=== PATIENT | male | born 1975 | race Caucasian/White ===

== ENCOUNTER 2016-11-22 10:49 | Emergency (ER) | payer OTHER ==
[~2016-11-22] VITALS: Ht 175.3 cm; Wt 81.6 kg
--- NOTE | 2016-11-22 11:48 | RADIOLOGY REPORT ---
EXAMINATION: XR HAND, LEFT CLINICAL INFORMATION: Pain and swelling status post trauma. COMPARISON: None TECHNIQUE: AP, lateral, and oblique views of the left hand. FINDINGS: Bandage material is identified laterally. Bone mineral density is maintained without evidence of fracture or dislocation. No focal osseous lesions are seen. Joint space is maintained without productive or erosive changes. No radiopaque foreign bodies are seen. IMPRESSION: No fracture or foreign body is identified.
[2016-11-22] MEDS ORDERED: METOPROLOL TART25 M1 PO (12:01)
[2016-11-22] MEDS ORDERED: SERTRALINE HCL50 MG PO (12:01)
[2016-11-22] MEDS ORDERED: ASPIRIN EC81 M1 PO (12:02)
--- NOTE | 2016-11-22 12:59 | ED UPPER/LOWER EXTREMITY COMPL ---
History of Present Illness General Chief Complaint: Laceration Procedure Stated Complaint: L HAND/STOMACH LAC Source: patient Exam Limitations: no limitations Vital Signs & Intake/Output Vital Signs & Intake/Output Vital Signs Date Time Temp Pulse Resp B/P Pulse O2 O2 Flow FiO2 Ox Delivery Rate 11/22 1350 76 16 118/70 99 Room Air 11/22 1058 97.1 80 18 124/86 98 Room Air Allergies Coded Allergies: No Known Allergies (11/22/16) Reconcile Medications Aspirin (Ecotrin*) 81 MG TABLET.DR 1 TAB PO DAILY HEART HEALTH (Reported) Metoprolol Tartrate 25 MG TABLET 1 TAB PO TID HEART RATE (Reported) Oxycodone HCl/Acetaminophen (Percocet 5-325 MG Tablet) 5 MG-325 MG TABLET 1 TAB PO TID PRN PAIN Sertraline HCl 50 MG TABLET 1.5 TAB PO DAILY MENTAL HEALTH (Reported) Triage Note: PT STATES THAT WHILE AT WORK HE WAS FEEDING A METAL BAR INTO A MACHINE AND FEED TUBE CAME BACK AND HIT TOP OF HIS L HAND, LAC NOTED AND BLEEDING UNDER CONTROL, ALSO BAR HIT HIM L SIDE ABD , NOTED WITH ABRASION AND SWELLING. PT CONCERNED DUE TO HE HAD MITRAL VALVE REPLACEMENT 6 MONTHS AGO Triage Nurses Notes Reviewed? yes Onset: Abrupt Duration: constant Timing: single episode today Severity: severe Method of Injury: direct blow No Modifying Factors: none HPI: Patient is a 40-year-old male who presents emergency and that while at work today he was near a metal circulating machine in which it subsequently struck patient to the left dorsal aspect of his hand resulting in a laceration and immediate onset of 10 out of 10 pain localized to left hand and left abdomen region resulting in skin abrasions and ecchymosis and tenderness. Denies any nausea vomiting. Tetanus is unknown. No medications given prior to arrival. Patient is right arm dominant. (KELVIN GUERRERO) Past History Travel History Traveled to [place] past 21 day No Medical History Any Pertinent Medical History? 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 No (KELVIN GUERRERO) Review of Systems Review of Systems Constitutional: Reports: no symptoms. EENTM: Reports: no symptoms. Respiratory: Reports: no symptoms. Cardiovascular: Reports: no symptoms. Gastrointestinal/Abdominal: Reports: no symptoms. Genitourinary: Reports: no symptoms. Musculoskeletal: Reports: see HPI. Skin: Reports: see HPI, change in skin color. Neurological/Psychological: Reports: no symptoms. Hematologic/Endocrine: Reports: see HPI, bleeding. Immunological: Reports: no symptoms. All Other Systems: Reviewed and Negative (KELVIN GUERRERO) Physical Exam Physical Exam General Appearance: no apparent distress, alert, comfortable Shoulder Left: normal range of motion, normal inspection Shoulder Right: normal range of motion, normal inspection Elbow Left: normal range of motion, normal inspection Elbow Right: normal range of motion, normal inspection Hand Right: normal inspection, normal range of motion Neurologic/Tendon: normal sensation, normal motor functions, normal tendon functions, responds to pain, no evidence tendon injury, no pulse deficit Comments: Well-developed well-nourished no apparent distress. HEENT: Atraumatic, extraocular motion intact Neck: Supple, no lymphadenopathy Back: Nontender Respiratory: No respiratory distress Extremities: Left wrist nontender full active range of motion full resisted range of motion- radial pulses +2 Left hand see diagram below Neuro: Alert and oriented x3 Psych: Mood affect normal, normal memory normal judgment. Diagram Shoulders Front/Back 1) Superficial skin abrasions noted with surrounding ecchymosis and mild tenderness no active bleeding no gaping wounds Left Arm Back 1) Superficial excoriation noted 2 cm Hands Back 1) 1.5 cm clean linear subcutaneous laceration Full resisted range of motion noted with 1-5 extension and flexion for digits no tendon deficit no exposed tendon no active bleeding (KELVIN GUERRERO) Progress Differential Diagnosis: arterial insufficiency, cellulitis, CHF, compartment syndrome, contusion, dislocation, DVT, fracture, gout, septic arthritis, sprain, tendon injury, SPLEEN LACERATION Plan of Care: Current Medications Sig/Misti Start time Last Medication Dose Stop Time Status Admin Lidocaine 20 ML ONCE ONE 11/22 1300 UNVr (Lidocaine 1%) 11/22 1301 Oxycodone/ 1 TAB ONCE ONE 11/22 1300 UNVr Acetaminophen 11/22 1301 (Percocet) Tetanus/Diphtheria 0.5 ML ONCE ONE 11/22 1300 UNVr Toxoids Adsorbed 11/22 1301 (Decavac) Patient's margins were revised with suture placement to left hand. Patient's wounds to the left arm and torso region were cleaned by nursing staff which bacitracin and bandages were applied. No osseous injury was noted on x- ray (KELVIN GUERRERO) Diagnostic Imaging: Viewed by Me: Radiology Read. Radiology Impression: no acute abnormality Comments: PATIENT: BILLY BENAVIDES PRESENT AGE: 40 PATIENT ACCOUNT NO: [id number] : 75 LOCATION: [facility] ORDERING PHYSICIAN: NANCY JACKSON DO SERVICE DATE: 11/22/16 EXAM TYPE: RAD - XRY-HAND, LEFT EXAMINATION: XR HAND, LEFT CLINICAL INFORMATION: Pain and swelling status post trauma. COMPARISON: None TECHNIQUE: AP, lateral, and oblique views of the left hand. FINDINGS: Bandage material is identified laterally. Bone mineral density is maintained without evidence of fracture or dislocation. No focal osseous lesions are seen. Joint space is maintained without productive or erosive changes. No radiopaque foreign bodies are seen. IMPRESSION: No fracture or foreign body is identified. (KELVIN GUERRERO) Departure Departure Disposition: HOME OR SELF CARE Condition: Stable Clinical Impression Primary Impression: Skin abrasion Secondary Impressions: Laceration of hand, left Referrals: CHAD AVELAR,KELVIN De La Paz (PCP/Family) Additional Instructions: As discussed begin to apply bacitracin to the area once a day for the following 4 days to prevent infection. KEEP ARE dry and clean as he can. Begin over-the- counter ibuprofen for pain and inflammation begin the prescription of Percocet for pain. Return to emergency room in 7-10 days for suture removal. If you note signs of infection redness, pain, swelling, discharge return to the emergency room immediately. Prescriptions waiting at [place] pharmacy Departure Forms: Customer Survey Employee Industrial [employer] General Discharge Information Prescriptions: Current Visit Scripts Oxycodone HCl/Acetaminophen (Percocet 5-325 MG Tablet) 1 TAB PO TID PRN PAIN #10 TAB (KELVIN GUERRERO) PA/COUNSELLORS Co-Sign Statement Statement: ED Attending supervision documentation- [] I saw and evaluated the patient. I have also reviewed all the pertinent lab results and diagnostic results. I agree with the findings and the plan of care as documented in the PA's/COUNSELLORS's documentation. [X] I have reviewed the ED Record and agree with the PA's/COUNSELLORS's documentation. [] Additions or exceptions (if any) to the PAs/COUNSELLORS's note and plan are summarized below: [] (RENETTA ESTRADA,NANCY Frank) Procedures Laceration/Wound Repair Laceration/Wound Repair: Wound Location: upper extremity (LEFT HAND DORSAL ASPECT) Wound's Depth, Shape: linear, subcutaneous Wound Length (cm): 1.5 Wound Explored: clean, no foreign body removed, irrigated extensively Irrigated w/ Saline (ccs): 500 Betadine Prep? Yes Anesthesia: 1% lidocaine Volume Anesthetic (ccs): 5 Wound Repaired With: sutures Suture Size/Type: 5:0 Number of Sutures: 3 Layer Closure? No Progress: Margins revises suture placement, patient tolerated well, bacitracin bandage was applied (KELVIN GUERRERO)
[2016-11-22] MEDS ORDERED: PERCOCET 5-3251 EACH PO (13:38)
[2016-11-22 13:50] VITALS: BP 118/70
== END 2016-11-22 13:51 ==
LOC: ERH 10:49
DX: S61.412A Laceration without foreign body of left hand, initial encounter (principal); S30.811A Abrasion of abdominal wall, initial encounter; W31.9XXA Contact with unspecified machinery, initial encounter
CPT/HCPCS: 73130-LT; 90471; 90714